=== PATIENT | female | born 1980 | race Caucasian/White ===

== ENCOUNTER → 2016-06-26 | Outpatient (CLI) | payer BC ==
[2016-06-28 23:03] LABS: CHLAMYDIA TRACH RNA*** NOT DETECTED (NOT DETECTED); GC (NEIS GONORRHOEAE)RNA** NOT DETECTED (NOT DETECTED)
== END | disposition home or self-care (01) ==
LOC: C.LABSPEC 16:01
PROVIDERS: ATTEND Obstetrics & Gynecology
DX: Z11.3 Encounter for screening for infections with a predominantly sexual mode of transmission (principal)

== ENCOUNTER → 2016-06-26 | Outpatient (CLI) | payer BC | END | disposition home or self-care (01) | LOC: C.PAPS 17:17 | PROVIDERS: ATTEND Obstetrics & Gynecology | DX: Z01.419 Encounter for gynecological examination (general) (routine) without abnormal findings (principal) ==

== ENCOUNTER → 2016-06-26 | Outpatient (CLI) | payer BC | END | disposition home or self-care (01) | LOC: C.PATHSPEC 16:05 | PROVIDERS: ATTEND Obstetrics & Gynecology | DX: N84.1 Polyp of cervix uteri (principal) ==

== ENCOUNTER → 2016-12-18 | Day surgery (SDC) | payer BC ==
[2016-11-09 12:42] VITALS: Ht 165.1 cm; Wt 56.8 kg
[2016-12-11 14:49] LABS: BASO % 0.4 %; BASO ABS # 0.03 K/uL (0-0.2); COMPLETE YES; EOS % 1.1 %; HEMATOCRIT 34.9 % (37-47); IG% 0.1 %; LYMPH % 28.8 %; LYMPH ABS # 2.07 K/uL (1.2-3.4); MEAN CELL VOLUME 89.9 fL (80-100); MEAN CORPUSCULAR HEMOGLOBIN 30.2 pg (25-34); MEAN CORPUSCULAR HGB CONC 33.5 g/dl (32-36); MEAN PLATELET VOLUME 10.5 fL (7.4-10.4); MONO % 6.3 %; NEUT % 63.3 %; PLATELET COUNT 309 K/uL (130-400); RED BLOOD COUNT 3.88 M/uL (4.2-5.4); WHITE BLOOD COUNT 7.18 K/uL (4.8-10.8)
[2016-12-11 14:57] LABS: PROTHROMBIN TIME (PATIENT) 10.9 SECONDS (9.0-12.0)
[2016-12-11 15:11] LABS: POTASSIUM 3.5 mmol/L (3.5-5.1)
[~2016-12-18] VITALS: Ht 165.1 cm; Wt 56.8 kg
[~2016-12-18] MED LIST: ATROPINE SULFATE 0.1 MG/ML 5ML SYR IV PRN; BACITRACIN/POLYMYXIN B OINT 15 GM TUBE EXT ONE; DEXAMETHASONE SOD INJ 4 MG/ML VIAL ONE; EpHEDrine SULFATE INJ 50 MG/ML AMP IV PRN; FENTANYL CITRATE INJ 50 MCG/1 ML 2 ML VIAL IV PRN; FENTANYL CITRATE INJ 50 MCG/1 ML 2 ML VIAL ONE; FLUMAZENIL 0.1 MG/1 ML 10 ML VIAL IV PRN; HYDROmorphone INJ 2 MG/ML SYR/VIAL IV PRN; LABETALOL HCL IV 5 MG/ML 20ML IV PRN; LACTATED RINGER'S 1000ML 1,000 ML IV SCH; LIDOCAINE 2% JELLY 5 ML TUBE EXT ONE; LIDOCAINE HCL 2% 2 ML VIAL (20MG/ML) ONE; MEPERIDINE HCL 25 MG/ML CARP IV PRN; MIDAZOLAM HCL 1 MG/ML 2ML VIAL ONE; NALOXONE HCL 0.4 MG/1 ML VIAL/CARP IV PRN; ONDANSETRON INJ 2 MG/ML 2 ML VIAL IV PRN; ONDANSETRON INJ 2 MG/ML 2 ML VIAL ONE; OXYCODONE HCL SOLN 5 MG/5 ML UDC PO PRN; PHENYLEPHRINE 100MCG/ML 5ML SYR IV PRN; PROPOFOL IV EMULSION 10 MG/ML 20 ML VIAL IV ONE; SUCCINYLCHOLINE CHLORIDE 20 MG/ML 10 ML VIAL IV ONE
--- NOTE | 2016-12-18 07:44 | History and Physical: Surg Cnt ---
History & Physical Date Dec 18, 2016. Chief Complaint CHRONIC TONSILLITIS History of Present Illness The patient is a 36 year old female with complaints of CHRONIC TONSILLITIS WITH L TONSILLITH FORMATION. Past Medical/Surgical History PMH: MIGRAINE PSH: S/P RHINOPLASTY Additional History Hepatic Disease: No Endocrine Disorder: No Kidney Disease: No Hypertension: No Heart Disease: No Bleeding Tendencies: No Infectious Diseases: No Allergies Coded Allergies: Methimazole (Verified Allergy, Severe, RASH, 12/18/16) Home Medications No Active Prescriptions or Reported Meds Physical Examination Skin: warm/dry, no rash Eyes: normal inspection, EOMI, sclerae normal ENT: + pertinent finding (2-3+ TONSILS WITH L-SIDED TONSILLITHS PRESENT) Head: normocephalic, atraumatic Neck: supple, no adenopathy, trachea midline Respiratory/Chest: lungs clear, normal breath sounds, no respiratory distress Cardiovascular: regular rate, rhythm, no edema, no murmur Neurologic/Psych: no motor/sensory deficits, alert, normal reflexes, oriented x 3 Diagnosis CHRONIC TONSILLITIS Plan of Treatment TONSILLECTOMY, POSSIBLE ADENOIDECTOMY
--- NOTE | 2016-12-18 08:10 | [facility] Operative Report ---
Operative Report Operative Date Dec 18, 2016. Pre-Operative Diagnosis Chronic Tonsillitis Post-Operative Diagnosis Same Procedure(s) Performed Tonsillectomy Surgeon Dr. Almeida Substitute Teacher Surgeon(s) None Estimated Blood Loss 0 mL Findings 1. 2-3+ CRYPTIC TONSILS BILATERALLY WITH L-SIDED TONSILLITHS Specimens A. Right Tonsil B. Left Tonsil I attest to the content of the Intraoperative Record and any orders documented therein. Any exceptions are noted below.
--- NOTE | 2016-12-18 08:12 | Discharge Instructions ---
Discharge Instructions Date of Service Dec 18, 2016. Admission Reason for Admission: Chronic Tonsillitis Discharge Discharge Diagnosis / Problem: SAME Discharge Goals Goal(s): Therapeutic intervention Activity Recommendations Activity Limitations: as noted below LIGHT ACTIVITY FOR 2 WEEKS AND NO DRIVING WHILE ON OXYCODONE . Current Hospital Diet Patient's current hospital diet: Full Liquid Diet Discharge Diet Recommended Diet: Full Liquid Diet Diet Texture: Mechanical Soft (ground) Procedures Procedures Performed: Tonsillectomy Pending Studies Studies pending at discharge: no Medical Emergencies . Who to Call and When: Medical Emergencies: If at any time you feel your situation is an emergency, please call 911 immediately. . Non-Emergent Contact Non-Emergency issues call your: Surgeon . . "Provider Documentation" section prepared by Shamar Almeida. . VTE Core Measure Inpt VTE Proph given/why not?: SCD's
--- NOTE | 2016-12-18 08:58 | OPERATIVE REPORT ---
DATE OF OPERATION: 12/18/2016 PREOPERATIVE DIAGNOSIS: Chronic tonsillitis. POSTOPERATIVE DIAGNOSIS: Chronic tonsillitis. PROCEDURE: Bilateral tonsillectomy. SURGEON: Dr. Almeida. ANESTHESIA: General endotracheal. ESTIMATED BLOOD LOSS: Zero. FINDINGS: 2-3+ cryptic tonsils bilaterally with left-sided tonsillith formation. SPECIMENS: Right and left tonsil sent separately for permanent pathological assessment. COMPLICATIONS: None. INDICATIONS: The patient is a 36-year-old female with the above-mentioned history presents for the above-mentioned procedure on an outpatient elective basis. DESCRIPTION OF PROCEDURE: After informed consent had been obtained from the patient, the patient was wheeled to the operating room and placed on the operating table in supine position. Monitors were placed. After induction of general endotracheal anesthesia, the table was turned 90 degrees and the patient's head and neck were gently extended. Antibiotic ointment was applied to the lips and a mouth gag was carefully inserted, opened, stabilized on a roll of towels. The palate was inspected and was found to be normal. A catheter was then inserted into the right nasal cavity and this was used to elevate the soft palate and uvula. A laryngeal mirror was used to inspect the nasopharynx and intraoperative findings were no evidence of adenoid tissue. Therefore, the catheter was removed. An Allis clamp was then used to grasp the right tonsil and the superior pole and Bovie electrocautery was used to remove the tonsil in the capsular plane with care to preserve the underlying mucosa and musculature of the anterior and posterior tonsillar pillars. The left tonsil was then removed in a similar fashion. Intraoperative findings were of 2-3+ cryptic tonsils bilaterally with left-sided tonsilliths formation. Tonsils were sent separately for permanent pathologic assessment. The mouth gag was then released for 1 minute. This was reopened and hemostasis was confirmed. An orogastric tube was placed and the stomach was suctioned free of air and stomach contents. 2% lidocaine jelly was placed in the bilateral tonsillar fossae for added anesthetic effect. This marked the end of the case. The patient tolerated the procedure well with no apparent complications. All the instrumentation was removed from the patient. The patient was extubated and transferred to recovery room in stable condition. I attest to the content of the Intraoperative Record and any orders documented therein. Any exception s are noted below.
--- NOTE | 2016-12-18 09:01 | Anesthesia Progress Nt - [facility] ---
Anesthesia Post Op Note Date & Time Dec 18, 2016 at 09:01 Vital Signs Pain Intensity: 2 Vital Signs Past 12 Hours Date Time Temp Pulse Resp B/P (MAP) Pulse Ox O2 Delivery O2 Flow Rate FiO2 12/18/16 08:37 36.5 81 16 112/73 100 Humidified Oxygen 6 Mask 12/18/16 07:03 36.6 63 22 98/68 (78) 97 Room Air Notes Mental Status: alert / awake / arousable, participated in evaluation Pt Amnestic to Procedure: Yes Nausea / Vomiting: adequately controlled Pain: adequately controlled Airway Patency, RR, SpO2: stable & adequate BP & HR: stable & adequate Hydration State: stable & adequate Anesthetic Complications: no major complications apparent
[2016-12-18 09:11] VITALS: TEMP 36.4
[2016-12-18 09:37] VITALS: BP 118/71; PULSE 54; O2SAT 100
== END | disposition home or self-care (01) ==
LOC: X.SURG 06:50
DX: J03.90 Acute tonsillitis, unspecified (principal)